=== PATIENT | male | born 1955 | race Caucasian/White ===

== ENCOUNTER 2016-10-28 07:58 | Day surgery (SDC) | payer OTHER ==
[2016-10-18 08:36] VITALS: Ht 175.3 cm; Wt 91.9 kg
--- NOTE | 2016-10-18 09:00 | PAT Medication Instructions ---
Service Date Oct 18, 2016. Current Home Medication List Alfuzosin Hcl (Alfuzosin Hcl Er), 1 TAB PO QAM Dutasteride (Avodart), 0.5 MG PO QAM Indomethacin (Indocin), 50 MG PO BID PRN for gout flare ups Losartan Potassium (Cozaar), 50 MG PO QAM Melatonin (Melatonin Maximum Strengt), 10 MG PO HS PRN for work schedule Multivitamin (Multivitamin), 1 TAB PO QAM Omeprazole (Prilosec), 20 MG PO QAM Valacyclovir (Valtrex), 500 MG PO QAM Medication Instructions For Your Scheduled Surgery - Hold the following medications the morning of surgery: Losartan Potassium (Cozaar), 50 MG PO QAM Multivitamin (Multivitamin), 1 TAB PO QAM Indomethacin (Indocin), 50 MG PO BID PRN for gout flare ups - Take the following medications the morning of surgery with a sip of water OTHERWISE NOTHING TO EAT OR DRINK AFTER MIDNIGHT: Omeprazole (Prilosec), 20 MG PO QAM Valacyclovir (Valtrex), 500 MG PO QAM Alfuzosin Hcl (Alfuzosin Hcl Er), 1 TAB PO QAM Dutasteride (Avodart), 0.5 MG PO QAM - Take the following medications as scheduled the night before surgery: Melatonin (Melatonin Maximum Strengt), 10 MG PO HS PRN for work schedule If you have any questions please call us at [phone] or [phone] or [phone]
--- NOTE | 2016-10-18 09:50 | DIAGNOSTIC IMAGING REPORT ---
CHEST PREADMISSION(PA/LAT) CLINICAL HISTORY: Preoperative chest COMPARISON STUDY: 10/28/2012 FINDINGS: The cardiac and mediastinal contours are normal. There is no evidence of focal pulmonary consolidation. There is no evidence of failure. No pleural effusions are visualized.[ IMPRESSION: No active disease in the chest. Electronically signed by: Contreras Bhatia M.D. 10/18/2016 9:47 AM Dictated Date/Time: 10/18/2016 9:47 AM
[2016-10-18 09:58] LABS: BASO % 0.3 %; BASO ABS # 0.02 K/uL (0-0.2); COMPLETE YES; EOS % 1.7 %; HEMATOCRIT 41.8 % (42-52); LYMPH % 40.8 %; LYMPH ABS # 2.83 K/uL (1.2-3.4); MEAN CELL VOLUME 93.3 fL (80-100); MEAN CORPUSCULAR HEMOGLOBIN 31.7 pg (25-34); MEAN PLATELET VOLUME 8.9 fL (7.4-10.4); MONO % 8.6 %; NEUT % 48.6 %; PLATELET COUNT 312 K/uL (130-400); RED BLOOD COUNT 4.48 M/uL (4.7-6.1); WHITE BLOOD COUNT 6.94 K/uL (4.8-10.8)
[2016-10-18 09:59] LABS: URINE APPEARANCE CLEAR (CLEAR); URINE BILIRUBIN NEG (NEG); URINE COLOR YELLOW; URINE EPITHELIAL CELL AUTO 0-5 /lpf (0-5); URINE NITRITE NEG (NEG); URINE PH 5.5 (4.5-7.5); URINE SPECIFIC GRAVITY 1.008 (1.000-1.030); UROBILINOGEN NEG (NEG)
[2016-10-18 10:01] LABS: MANUAL MICROSCOPIC REQUIRED? NO; REVIEW REQ? NO
[2016-10-18 10:13] LABS: CALCIUM 9.3 mg/dl (8.5-10.1)
[2016-10-18 10:17] LABS: BUN/CREATININE RATIO 21.3 (10-20); CREATININE 0.94 mg/dl (0.60-1.40); POTASSIUM 4.4 mmol/L (3.5-5.1)
[~2016-10-28] VITALS: Ht 175.3 cm; Wt 91.9 kg
[~2016-10-28 07:58] MED LIST: ALFU1TAB2 PO; CIPROFLOXACIN / D5W 400 MG IV SCH; DUTA0.5C PO; INDO-24 PO; LACTATED RINGER'S 1000ML IV SCH; LOSA50TA6 PO; MELATAB2 PO; MULT-506 PO; PRLSR20 PO; VALA500T60 PO
--- NOTE | 2016-10-28 08:14 | History & Physical Bridge Note ---
H&P Re-Evaluation Bridge Note: I have examined the patient, reviewed the History & Physical and in the interval since the performance of the History & Physical I have noted the following changes of clinical significance: No changes noted
[2016-10-28] MEDS ORDERED: MIDAZOLAM HCL 1 MG/ML 2ML VIAL ONE (08:25)
[2016-10-28] MEDS ORDERED: FENTANYL CITRATE INJ 50 MCG/1 ML 2 ML VIAL ONE (08:25)
[2016-10-28 08:26] VITALS: BP 139/89; PULSE 94; TEMP 36.5; O2SAT 97
[2016-10-28] MEDS ORDERED: ONDANSETRON INJ 2 MG/ML 2 ML VIAL ONE (09:36)
[2016-10-28] MEDS ORDERED: LIDOCAINE HCL 2% 2 ML VIAL (20MG/ML) ONE (09:36)
[2016-10-28] MEDS ORDERED: PROPOFOL IV EMULSION 10 MG/ML 20 ML VIAL IV ONE (09:36)
[2016-10-28] MEDS ORDERED: EpHEDrine SULFATE INJ 50 MG/ML AMP IV PRN (09:45)
[2016-10-28] MEDS ORDERED: ONDANSETRON INJ 2 MG/ML 2 ML VIAL IV PRN (09:45)
[2016-10-28] MEDS ORDERED: PHENYLEPHRINE 100MCG/ML 5ML SYR IV PRN (09:45)
[2016-10-28] MEDS ORDERED: ATROPINE SULFATE 0.1 MG/ML 5ML SYR IV PRN (09:45)
[2016-10-28] MEDS ORDERED: BELLADONNA/OPIUM SUPP 60 MG SUPP PR ONE (10:06)
[2016-10-28] MEDS ORDERED: DEXAMETHASONE SOD INJ 4 MG/ML VIAL ONE (10:06)
[2016-10-28] MEDS ORDERED: PHENYLEPHRINE HCL INJ 10 MG/ML VIAL ONE (10:28)
[2016-10-28] MEDS ORDERED: EpHEDrine SULFATE 50MG/5ML SYR ONE (10:36)
[2016-10-28] MEDS ORDERED: PHEN-775 PO (10:51)
[2016-10-28] MEDS ORDERED: CIPR-255 PO (10:51)
[2016-10-28] MEDS ORDERED: OXYC7.5T65 PO (10:51)
--- NOTE | 2016-10-28 10:54 | Discharge Instructions ---
Discharge Instructions Date of Service October 28, 2016. Admission Reason for Admission: Benign Prostatic Hypertrophy Discharge Discharge Diagnosis / Problem: BPH s/p GLTURP Discharge Goals Goal(s): Improve function, Improve disease control, Therapeutic intervention Activity Recommendations Activity Limitations: as noted below Lifting Limitations: no more than 25 pounds (may increase in 3-5 days if urine clear) Exercise/Sports Limitations: rest today, gradually increase as tolerated ( After 3-5 days if urine clear) May Resume Sexual Activity: after follow-up appointment Shower/Bathe: may shower/bathe in 3 days Driving or Machine Use: resume 3 days after discharge . Instructions / Follow-Up Instructions / Follow-Up Rosales to leg bag and gravity as instructed today Discharge Diet Recommended Diet: Regular Diet (good fluid intake) Procedures Procedures Performed: Greenlight Transurethral Resection Prostate Pending Studies Studies pending at discharge: no Medical Emergencies . Who to Call and When: Medical Emergencies: If at any time you feel your situation is an emergency, please call 911 immediately. . Non-Emergent Contact Non-Emergency issues call your: Urologist Call Non-Emergent contact if: you have a fever, temperature is above 101, your pain is not controlled, your pain is worsening, your pain is unusual for you, your pain is concerning you, you have any medication questions . . "Provider Documentation" section prepared by Brett Laurent. . VTE Core Measure Inpt VTE Proph given/why not?: SCD's [place] Drug Monitoring Program Search Results: patient reviewed within database, no issues identified
--- NOTE | 2016-10-28 10:56 | [facility] Post Operative Brief Note ---
Immediate Operative Summary Operative Date October 28, 2016. Pre-Operative Diagnosis Benign prostate hyperplasia with urinary obstruction Post-Operative Diagnosis Benign prostate hyperplasia with urinary obstruction Procedure(s) Performed Greenlight Transurethral Resection Prostate Surgeon Dr. Santana Roof Fitter Surgeon(s) None Estimated Blood Loss 5 ml Findings Open fossa after completion, 111 K of energy used Specimens No specimen per surgeon Drains 20 fr 10 cc H2O Anesthesia GALMA Complication(s) None Disposition Recovery Room / PACU
[2016-10-28] MEDS ORDERED: PHENAZOPYRIDINE HCL 200 MG TAB PO PRN (11:00)
[2016-10-28] MEDS ORDERED: OXYCODONE/ACETAMINOPHEN 5-325 TAB PO PRN ×2 (11:00)
[2016-10-28] MEDS: HYDROmorphone INJ 2 MG/ML SYR/VIAL IV PRN ×2 (11:00→11:05)
[2016-10-28 11:33] VITALS: BP 116/71; PULSE 93; TEMP 36.4; O2SAT 95
[2016-10-28 12:00] VITALS: BP 113/72; PULSE 78; O2SAT 97
--- NOTE | 2016-10-28 12:08 | Anesthesiology Progress Note ---
Anesthesia Post Op Note Date & Time October 28, 2016 at 12:07 Vital Signs Pain Intensity: 2 Vital Signs Past 12 Hours Date Time Temp Pulse Resp B/P Pulse Ox O2 Delivery O2 Flow Rate FiO2 10/28/16 11:33 36.4 93 18 116/71 95 Room Air 10/28/16 11:20 36.0 91 16 114/70 95 Room Air 10/28/16 11:10 94 16 124/75 97 Mask 10 10/28/16 11:00 92 16 111/61 96 Mask 10 10/28/16 10:49 36.0 103 16 118/63 97 Mask 10 10/28/16 08:26 36.5 94 18 139/89 97 Room Air Notes Mental Status: alert / awake / arousable, participated in evaluation Pt Amnestic to Procedure: Yes Nausea / Vomiting: adequately controlled Pain: adequately controlled Airway Patency, RR, SpO2: stable & adequate BP & HR: stable & adequate Hydration State: stable & adequate Anesthetic Complications: no major complications apparent
[2016-10-28 12:30] VITALS: BP 114/73; PULSE 92; TEMP 36.4; O2SAT 96
[2016-10-28] MEDS ORDERED: HYDR-3419 PO (12:36)
--- NOTE | 2016-10-28 14:05 | OPERATIVE REPORT ---
DATE OF OPERATION: 10/28/2016 PREOPERATIVE DIAGNOSIS: Benign prostatic hypertrophy with urinary obstruction. POSTOPERATIVE DIAGNOSIS: Same. PROCEDURE: GreenLight vaporization of the prostate gland. SURGEON: Dr. Brett Laurent. CUT OFF SAW SET UP OPERATOR: None. ANESTHESIA: General anesthesia with laryngeal mask. COMPLICATIONS: None. FINDINGS: Open prostatic fossa with excellent hemostasis after completion of case, 111,000 joules of energy used. DRAINS LEFT IN PLACE: Include a 20-Greenlandic catheter with 10 mL of sterile water in the balloon. SPECIMENS SENT TO PATHOLOGY: None. COMPLICATIONS: None. BRIEF HISTORY: Mr. White is a pleasant 60-year-old male who has been maintained on maximum medical therapy for symptomatic BPH. Office cystoscopy has demonstrated lateral lobe hypertrophy. However, the patient continues to have residual symptoms despite his use of medication and wishes to proceed with surgical intervention in the form of GreenLight vaporization of the prostate gland. Please see H\T\P for further details. The patient is being brought in today for surgical intervention. Intravenous ciprofloxacin is used for antibiotic coverage and SCDs used for DVT prophylaxis. DESCRIPTION OF PROCEDURE: The patient was properly identified and brought to the operative suite after identification of appropriate consent on the chart, general anesthesia with laryngeal mask was initiated. The patient was prepped and draped in standard fashion for this procedure. assurance senior manager insurance-out procedure was followed. GreenLight laser resectoscope was introduced into the bladder under direct visualization using a visual obturator. Prostatic hypertrophy, left greater than right, was appreciated. Minimal bladder neck elevation was noted. Ureteral orifices were noted to be adequately removed from the bladder neck and were free of injury throughout the case and at the end of the case. Grade 1-2 trabeculation was present within the bladder with no intravesical lesions, papillary masses, or calculi. Using a side fire GreenLight laser scope, circumferential vaporization of the prostate gland was performed. Relaxing incisions at the 5 and 7 o'clock position were made and the bladder neck was vaporized until flushed with the trigone. Apical sparing of the prostate gland was performed with node resection past the level of the verumontanum. After completion of the case, the prostate was noted to be visually unobstructed with excellent hemostasis. No evidence of injury to the intravesical structures was noted. 100,000 joules of energy had been used as noted previously. Bladder was partially distended and resectoscope was removed. A 20-Greenlandic Rosales catheter was placed with return of clear irrigant. Ten mL of sterile water were placed in the balloon and catheter was placed to gravity drainage. Anesthesia was reversed, the patient was transferred to recovery room in stable condition after provision of a belladonna and opium suppository for additional postoperative analgesia. FOLLOWUP CARE: The patient will be discharged home with a Rosales catheter in place. Outpatient trial of void and postoperative appointment confirmed. The patient was provided with prescription for Pyridium, Percocet, and ciprofloxacin for antibiotic coverage. He is instructed to contact our office should he note any fevers, chills, nausea, vomiting or other significant difficulties in the postoperative period. I attest to the content of the Intraoperative Record and any orders documented therein. Any exceptio ns are noted below.
== END 2016-10-28 12:43 | disposition home or self-care (01) ==
LOC: C.ACU 07:58
PROVIDERS: ATTEND Urology
DX: N40.1 Benign prostatic hyperplasia with lower urinary tract symptoms (principal); N13.8 Other obstructive and reflux uropathy; R33.9 Retention of urine, unspecified; M19.90 Unspecified osteoarthritis, unspecified site; Z79.899 Other long term (current) drug therapy